=== PATIENT | female | born 1940 | race Caucasian/White ===

== ENCOUNTER 2016-11-19 07:23 | Emergency (ER) | payer OTHER ==
[~2016-11-19] VITALS: Ht 167.6 cm; Wt 91.0 kg
[2016-11-19] MEDS ORDERED: MELOXICAM7.5 MG PO (08:09)
[2016-11-19] MEDS ORDERED: LOSARTAN-HCTZ1 EAC1 PO (08:10)
[2016-11-19] MEDS ORDERED: PANTOPRAZOLE SO40 MG PO (08:10)
[2016-11-19] MEDS ORDERED: PRAVASTATIN SOD40 MG PO (08:11)
[2016-11-19] MEDS ORDERED: CITALOPRAM HBR40 MG PO (08:11)
[2016-11-19] MEDS ORDERED: GINKGO BILOBA120 M1 PO (08:11)
[2016-11-19] MEDS ORDERED: ESTER-C 1,0001 EACH PO (08:12)
[2016-11-19] MEDS ORDERED: CENTRUM SILVER1 EAC3 PO (08:12)
[2016-11-19] MEDS ORDERED: LO-DOSE ASPIRIN81 M2 PO (08:12)
[2016-11-19 08:13] LABS: HEMATOCRIT 37.2 % (36.0-46.0); MCH 30.3 PG (29.0-34.0); MCHC 33.3 G/DL (30.0-36.0); PLATELET COUNT 325 K/uL (156-360); RBC DIS.WIDTH-CV 12.7 % (11.8-14.6); RBC DIS.WIDTH-SD 41.7 % (39-53); RED BLOOD COUNT 4.09 M/uL (3.80-5.20); WHITE BLOOD COUNT 9.7 K/uL (4.1-10.2)
[2016-11-19] MEDS ORDERED: OS-CAL 500+D T1 EAC1 PO (08:13)
[2016-11-19] MEDS ORDERED: FISH OIL300 MG PO (08:13)
[2016-11-19 08:20] LABS: ADD MIUA? YES; BILIRUBIN NEGATIVE; BLOOD LARGE; COLOR YELLOW ((YELLOW)); GLUCOSE (STRIP) NEGATIVE; KETONES NEGATIVE; LEUKOCYTES LARGE; NITRITE NEGATIVE; PROTEIN (STRIP) 30; SPECIFIC GRAVITY 1.014 (1.000-1.030); UROBILINOGEN 0.2 MG/DL (0.2-1.0)
[2016-11-19 08:29] LABS: BACTERIA RARE /HPF; EPITHELIAL CELLS RARE /HPF; HYALINE CASTS 0-5 /LPF; MUCUS TRACE /LPF; RED BLOOD CELLS TNTC /HPF (0-5); UCUL ADDED? YES; WHITE BLOOD CELLS TNTC /HPF (0-5)
[2016-11-19 08:47] LABS: ALKALINE PHOSPHATASE 55 IU/L (3-129); ANION GAP 9 MEQ/L (2-14); CHLORIDE 98 MEQ/L (99-109); GFR ESTIMATE (CALCULATED) > 59 mL/min/; GLUCOSE 100 mg/dL (70-99); LIPASE 33 U/L (1.0-51.0); POTASSIUM 3.9 MEQ/L (3.7-5.4); SAMPLE HEMOLYSIS CHECK 0; SAMPLE ICTERIC CHECK 0; SAMPLE LIPEMIA CHECK 0; SODIUM 132 MEQ/L (136-147); TOTAL BILIRUBIN 0.7 MG/DL (0.0-1.0); UREA NITROGEN (BUN) 22 mg/dL (9-23)
[2016-11-19] MEDS ORDERED: KEFLEX500 MG PO (08:48)
[2016-11-19] MEDS ORDERED: PYRIDIUM200 MG PO (08:48)
[2016-11-19 09:44] VITALS: BP 160/86
== END 2016-11-19 09:47 | disposition home or self-care (01) ==
LOC: EME 07:23
PROVIDERS: Nurse Practitioner Family
DX: N39.0 Urinary tract infection, site not specified (principal); R31.9 Hematuria, unspecified; E87.1 Hypo-osmolality and hyponatremia; E78.5 Hyperlipidemia, unspecified; I10 Essential (primary) hypertension
CPT/HCPCS: 80053; 81003; 83605; 83690; 85027; 87077; 87086; 87186; 99281; 99284